=== PATIENT | female | born 2000 | race Caucasian/White ===

== ENCOUNTER 2020-05-06 13:09 | Emergency (ER) | payer OTHER ==
[~2020-05-06] VITALS: Ht 172.7 cm; Wt 53.5 kg
[2020-05-06 13:11] VITALS: BP 135/85
[2020-05-06] MEDS ORDERED: AUGMENTIN 875-1 EACH PO (14:29)
== END 2020-05-06 15:18 | disposition home or self-care (01) ==
LOC: ER 13:09
DX: S61.252A Open bite of right middle finger without damage to nail, initial encounter (principal); Z20.828 Contact with and (suspected) exposure to other viral communicable diseases; W54.0XXA Bitten by dog, initial encounter; Y93.89 Activity, other specified; Y92.89 Other specified places as the place of occurrence of the external cause; Y99.8 Other external cause status